=== PATIENT | male | born 1955 | race Asian ===

== ENCOUNTER 2017-04-29 14:00 | Emergency (ER) | payer OTHER ==
[~2017-04-29] VITALS: Wt 82.0 kg
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
== END 2017-04-29 18:58 | disposition home or self-care (01) ==
LOC: FTE 14:00
DX: M54.5 Low back pain (principal); R07.89 Other chest pain
CPT/HCPCS: 72040; 72072; 72100; 73030; 93005; Z7502